=== PATIENT | female | born 1955 | race Caucasian/White ===

== ENCOUNTER 2024-05-30 12:45 | Outpatient (CLI) | payer MEDICARE, OTHER, SELFPAY | END 2024-05-30 12:46 | disposition home or self-care (01) | LOC: ANHBWCAUD 12:49 | PROVIDERS: PCP Family Medicine; Visit Provider Family Medicine | DX: H91.93 Unspecified hearing loss, bilateral (principal) | CPT/HCPCS: 92557; 92567 ==

== ENCOUNTER 2024-08-28 15:00 | Outpatient (RCR) | payer MEDICARE, OTHER, SELFPAY | END 2024-09-17 23:59 | disposition home or self-care (01) | LOC: ANHBWCAUD 15:00 | PROVIDERS: PCP Family Medicine; Visit Provider Family Medicine | DX: Z46.1 Encounter for fitting and adjustment of hearing aid (principal) | CPT/HCPCS: 99199; V5261 ==